=== PATIENT | female | born 1950 | race Caucasian/White ===

== ENCOUNTER 2021-11-29 21:56 | Inpatient (IN) | payer MEDICARE, SELFPAY ==
[~2021-11-29] VITALS: Ht 165.1 cm; Wt 93.0 kg
--- NOTE | 2021-11-29 22:45 | NUR ---
To ER Bed 05.
--- NOTE | 2021-11-29 22:59 | NUR ---
received pt from EMS and placed to bed 05. pt currently a/o x 4, gcs 15. able to move all extremities freely. pt is a 71 year old female with hx of CV+, hypothyroid, asthma biba from home for cc of SOB x 2 days. Per EMS, pt sats 85% on RA. pt currently placed on 4lpm n/c. sts was CV+ 2 weeks ago. accompanying s/sx is myalgia, and loss of taste and smell. pt currently NAD. on CM. CR<3s.
[2021-11-29 23:16] VITALS: BP 109/61
[2021-11-29] MEDS ORDERED: ACETAMINOPHEN EXTRA STRENGTH 500 MG TAB PO ONE (23:55)
[2021-11-30] MEDS ORDERED: cefTRIAXone 1,000 MG VIAL ONE (00:06)
[2021-11-30 00:10] LABS: BASOPHILS # (AUTO) 0.1 K/uL (0.00-0.22); BASOPHILS % (AUTO) 0.8 % (0.0-2.0); EOSINOPHILS % (AUTO) 0.1 % (0.0-4.0); HEMATOCRIT 40.2 % (36-48); HEMOGLOBIN 13.5 g/dL (12.0-16.0); LYMPHOCYTES # (AUTO) 1.5 K/uL (2.5-16.5); MEAN CORPUSCULAR HEMOGLOBIN 29 pg (27-31); MEAN CORPUSCULAR HGB CONC 34 g/dL (33-37); MONOCYTES # (AUTO) 0.9 K/uL (0.8-1.0); MONOCYTES % (AUTO) 9.5 % (1.7-9.3); NEUTROPHILS # (AUTO) 6.9 K/uL (1.8-7.7); NEUTROPHILS % (AUTO) 73.6 % (42.2-75.2); PLATELET COUNT (AUTO) 212 K/uL (140-450); RED BLOOD CELL COUNT(AUTO) 4.68 MIL/uL (4.20-5.40); WHITE BLOOD COUNT (AUTO) 9.3 K/uL (4.8-10.8)
--- NOTE | 2021-11-30 00:11 | NUR ---
CV swab collected and sent to lab.
[2021-11-30 01:01] LABS: ALBUMIN 2.9 g/dL (3.4-5.0); ANION GAP 15.5 (8-16); CARBON DIOXIDE 25.9 mmol/L (21-32); CREATININE 1.1 mg/dL (0.6-1.3); POTASSIUM 4.4 mmol/L (3.5-5.1); TOTAL BILIRUBIN 0.3 mg/dL (0.0-1.0)
--- NOTE | 2021-11-30 01:19 | NUR ---
OPAL WESLEY CALLED REQUESTING UPDATE [phone]
--- NOTE | 2021-11-30 01:37 | NUR ---
NAD at this time. pt currently asleep.
--- NOTE | 2021-11-30 04:48 | NUR ---
afebrile at this time. currently asleep. NAD
--- NOTE | 2021-11-30 05:39 | NUR ---
sw with Buzz, spouse to give an update yosi pt.
--- NOTE | 2021-11-30 06:35 | NUR ---
NAD at this time VSS on 3lpml n/c
--- NOTE | 2021-11-30 07:30 | NUR ---
RECEIVED PT IN [place] AOX4. C/O BODY ACHES AND FATIGUE. PT ON 2L NC SATURATION 97%. SPEAKING IN FULL SENTENCES. DENIES SOB. NAD. SAFETY MAINTAINED.
[2021-11-30] MEDS ORDERED: guaiFENesin DM 200/20 MG-10 ML 10 ML UDC PO PRN (08:25)
[2021-11-30] MEDS ORDERED: ZOLPIDEM 5 MG TAB PO PRN (08:25)
[2021-11-30] MEDS ORDERED: DOCUSATE SODIUM 100 MG GELCAP PO PRN (08:25)
[2021-11-30] MEDS ORDERED: ACETAMINOPHEN 325 MG TAB PO PRN (08:25)
[2021-11-30] MEDS ORDERED: NACL 0.9% 1,000 ML IV SCH (08:25)
[2021-11-30] MEDS ORDERED: POTASSIUM CHLORIDE 10 MEQ TABER PO PRN (08:25)
[2021-11-30] MEDS ORDERED: HYDROcodone/APAP 7.5/325 MG 1 TAB PO PRN (08:25)
[2021-11-30] MEDS ORDERED: ONDANSETRON 4 MG/2 ML VIAL IM/IVP PRN (08:25)
[2021-11-30] MEDS ORDERED: ALBUTEROL HFA MDI 90 MCG/ACTUATION 8 GM INH PRN (08:30)
[2021-11-30] MEDS ORDERED: remdesivir CLINICAL MONITORING 1 EA MISC MC PRN (08:40)
--- NOTE | 2021-11-30 08:45 | NUR ---
DR AYALA AT BEDSIDE FOR EVAL. ORDERS TO DC FLUIDS.
[2021-11-30] MEDS: ZINC SULF 220 MG CAP PO SCH (09:38)
[2021-11-30] MEDS: ASCORBIC ACID 500 MG TAB PO SCH (09:38)
[2021-11-30] MEDS: PANTOPRAZOLE 40 MG TABEC PO SCH (09:38)
[2021-11-30] MEDS: AZITHROMYCIN 250 MG TAB PO SCH (09:39)
[2021-11-30] MEDS: COMMUNICATION ORDER MC SCH (09:53)
--- NOTE | 2021-11-30 10:45 | NUR ---
Received report from NATALYA Leung. Patient resting with meal tray completed. Denies any SOB; remains on lunchroom monitor and 4L by N/C showing SpO2 97%. Bed locked in lowest position, side rails x 2.
--- NOTE | 2021-11-30 11:50 | NUR ---
Lunch mealtray at bedside. Pt sitting upright completing meal.
[2021-11-30] MEDS ORDERED: REMDESIVIR. 200 MG in NACL 0.9% 100 ML IV SCH (12:00)
--- NOTE | 2021-11-30 12:32 | NUR ---
Patient completed 70% of meal; reports she has increased appetite. All pt needs met.
--- NOTE | 2021-11-30 13:47 | NUR ---
PT at bedside
--- NOTE | 2021-11-30 13:48 | NUR ---
ENTOMOLOGY PROFESSOR at bedside
--- NOTE | 2021-11-30 13:48 | NUR ---
Salvador (CLINICAL SUPPORT NURSE) states to continue patient on textured foods.
[2021-11-30 14:08] LABS: PROTHROMBIN TIME 10.2 secs (10.8-13.4)
[2021-11-30 14:13] LABS: CHOL/HDL RATIO 4.6 (1-4.5); FREE T4 (FREE THYROXINE) 1.02 ng/dL (0.76-1.46); MAGNESIUM 2.1 mg/dL (1.8-2.4); PHOSPHORUS 3.3 mg/dL (2.5-4.9); THYROID STIMULATING HORMONE 4.14 uIU/mL (0.34-3.74)
--- NOTE | 2021-11-30 16:14 | NUR ---
Bedside commode provided per request to void.
--- NOTE | 2021-11-30 16:21 | NUR ---
PATIENT HAS BEEN SCREENED AND CATEGORIZED MODERATE NUTRITION RISK. PATIENT WILL BE SEEN WITHIN 3-5 DAYS OF ADMISSION. JULIA [address]
--- NOTE | 2021-11-30 19:30 | NUR ---
Recived patient alert and oriented x 4. Patient's respirations are even and unlabored. Bilateral a/p lower lung sounds diminished. Dry cough noted. Patient currently on RA. Patient skin is warm and dry to touch. Patient appears to be resting comfortably in bed with no complaints at this time. Vital Signs within normal limits on groundskeeping yardman.
--- NOTE | 2021-11-30 23:16 | NUR ---
Patient appears to be resting comfortably in bed. Vital Signs within normal limits. Respirations even and unlabored.
--- NOTE | 2021-12-01 00:49 | NUR ---
Note clare in ED - 12/01/21 at 0115 by [facility] Patient discharged with v/s stable. Written and verbal after care instructions given and explained. Patient verbalized understanding. Ambulatory with steady gait. All questions addressed prior to discharge. Advised to follow up with PMD.
[2021-12-01] MEDS ORDERED: cefTRIAXone 1,000 MG VIAL ONE (01:21)
--- NOTE | 2021-12-01 03:30 | NUR ---
Patient appears to be resting comfortably in bed. Vital Signs within normal limits. Respirations even and unlabored.
[2021-12-01 06:07] LABS: T4 (THYROXINE) 8.7 ug/dL (4.5-12.0)
--- NOTE | 2021-12-01 07:08 | NUR ---
Patient awake and sitting up in bed. Patient alert and oriented x 4. Respirations are even and unlabored. Patient placed on 2L NC, o2 sat @ 88%. Patient given extra pillow for comfort and toothbrush and tooth paste. VSS on layer off.
--- NOTE | 2021-12-01 07:32 | NUR ---
REPORT RECEIVED FROM NATALYA COYNE FOR TRANSFER OF CARE
[2021-12-01] MEDS: PANTOPRAZOLE 40 MG TABEC PO SCH (08:43)
[2021-12-01] MEDS: ZINC SULF 220 MG CAP PO SCH (08:44)
[2021-12-01] MEDS: ASCORBIC ACID 500 MG TAB PO SCH (08:44)
[2021-12-01] MEDS: AZITHROMYCIN 250 MG TAB PO SCH (08:44)
[2021-12-01] MEDS: COMMUNICATION ORDER MC SCH (09:00)
[2021-12-01 11:21] LABS: BASOPHILS % (AUTO) 0.2 % (0.0-2.0); HEMATOCRIT 40.8 % (36-48); HEMOGLOBIN 13.4 g/dL (12.0-16.0); LYMPHOCYTES # (AUTO) 0.7 K/uL (2.5-16.5); LYMPHOCYTES % (AUTO) 6.2 % (20.5-51.1); MEAN CORPUSCULAR HEMOGLOBIN 28 pg (27-31); MEAN CORPUSCULAR HGB CONC 33 g/dL (33-37); MEAN CORPUSCULAR VOLUME 86.6 fL (80-94); MONOCYTES # (AUTO) 0.8 K/uL (0.8-1.0); MONOCYTES % (AUTO) 7.8 % (1.7-9.3); NEUTROPHILS # (AUTO) 9.2 K/uL (1.8-7.7); NEUTROPHILS % (AUTO) 85.8 % (42.2-75.2); PLATELET COUNT (AUTO) 244 K/uL (140-450); RED BLOOD CELL COUNT(AUTO) 4.72 MIL/uL (4.20-5.40); RED CELL DISTRIBUTION WIDTH 14.8 % (11.6-13.7); WHITE BLOOD COUNT (AUTO) 10.7 K/uL (4.8-10.8)
--- NOTE | 2021-12-01 11:29 | NUR ---
PT PROVIDED WITH FRESH LINEN, GOWN AND MOSIT TOWELETTES BEDSIDE
[2021-12-01] MEDS: REMDESIVIR. 100 MG in NACL 0.9% 100 ML IV SCH (12:00)
[2021-12-01 12:06] LABS: ANION GAP 14.4 (8-16); CARBON DIOXIDE 26.5 mmol/L (21-32); CREATININE 0.9 mg/dL (0.6-1.3); POTASSIUM 4.9 mmol/L (3.5-5.1)
--- NOTE | 2021-12-01 15:02 | NUR ---
Patient appears to be resting comfortably in bed. Vital Signs within normal limits. Respirations even and unlabored.
--- NOTE | 2021-12-01 18:17 | NUR ---
Patient appears to be resting comfortably in bed. Vital Signs within normal limits. Respirations even and unlabored. PT CURRENTLY READING BOOK BEDSIDE
--- NOTE | 2021-12-01 19:17 | NUR ---
Pt report given to NATALYA HUYNH. Transfer of care at this time.
--- NOTE | 2021-12-01 20:00 | NUR ---
AWAKE AND ALERT. DENIES COMPLAINTS. DIET TRAY SERVED.
--- NOTE | 2021-12-01 22:00 | NUR ---
RESTING IN BED WITH EYES CLOSED, RESPIRATIONS REGULAR AND UNLABORED
[2021-12-02] MEDS ORDERED: cefTRIAXone 1,000 MG VIAL ONE (00:38)
--- NOTE | 2021-12-02 02:00 | NUR ---
AWAKE. DENIES PAIN OR DISCOMFORT.
--- NOTE | 2021-12-02 05:52 | NUR ---
RESTING IN BED WITH EYES CLOSED. RESPIRATIONS REGULAR AND UNLABORED
--- NOTE | 2021-12-02 07:39 | NUR ---
REPORT RECEIEVED FROM NATALYA HUYNH FOR TRANSFER OF CARE
[2021-12-02] MEDS: ASCORBIC ACID 500 MG TAB PO SCH (08:12)
[2021-12-02] MEDS: PANTOPRAZOLE 40 MG TABEC PO SCH (08:12)
[2021-12-02] MEDS: AZITHROMYCIN 250 MG TAB PO SCH (08:13)
[2021-12-02] MEDS: ZINC SULF 220 MG CAP PO SCH (08:13)
--- NOTE | 2021-12-02 08:14 | NUR ---
Patient appears to be resting comfortably in bed. Vital Signs within normal limits. Respirations even and unlabored.
--- NOTE | 2021-12-02 08:18 | NUR ---
PT PROVIDED WITH EXTRA BLANKET AND BREAKFAST TRAY
[2021-12-02] MEDS: COMMUNICATION ORDER MC SCH (09:00)
[2021-12-02 09:24] LABS: BASOPHILS % (AUTO) 0.1 % (0.0-2.0); HEMATOCRIT 38.7 % (36-48); LYMPHOCYTES # (AUTO) 0.8 K/uL (2.5-16.5); LYMPHOCYTES % (AUTO) 8.5 % (20.5-51.1); MEAN CORPUSCULAR HEMOGLOBIN 29 pg (27-31); MEAN CORPUSCULAR HGB CONC 34 g/dL (33-37); MEAN CORPUSCULAR VOLUME 85.6 fL (80-94); MONOCYTES # (AUTO) 0.6 K/uL (0.8-1.0); MONOCYTES % (AUTO) 6.3 % (1.7-9.3); NEUTROPHILS # (AUTO) 7.9 K/uL (1.8-7.7); NEUTROPHILS % (AUTO) 85.1 % (42.2-75.2); PLATELET COUNT (AUTO) 294 K/uL (140-450); RED BLOOD CELL COUNT(AUTO) 4.52 MIL/uL (4.20-5.40); WHITE BLOOD COUNT (AUTO) 9.2 K/uL (4.8-10.8)
[2021-12-02 09:40] LABS: ALBUMIN 2.5 g/dL (3.4-5.0); ANION GAP 12.8 (8-16); CARBON DIOXIDE 27.6 mmol/L (21-32); POTASSIUM 4.4 mmol/L (3.5-5.1); TOTAL BILIRUBIN 0.2 mg/dL (0.0-1.0)
--- NOTE | 2021-12-02 12:01 | NUR ---
Patient appears to be resting comfortably in bed. Vital Signs within normal limits. Respirations even and unlabored.
[2021-12-02] MEDS: REMDESIVIR. 100 MG in NACL 0.9% 100 ML IV SCH (12:03)
[2021-12-02 12:09] LABS: ALBUMIN 2.6 g/dL (3.4-5.0); BILIRUBIN,DIRECT 0.1 mg/dL (0.0-0.3); TOTAL BILIRUBIN 0.2 mg/dL (0.0-1.0)
--- NOTE | 2021-12-02 12:44 | NUR ---
PT PROVIDED WITH LUNCH TRAY BEDSIDE
--- NOTE | 2021-12-02 18:29 | NUR ---
PT PROVIDED WITH DINNER TRAY BEDSIDE
--- NOTE | 2021-12-02 19:23 | NUR ---
Pt report given to NATALYA SCOTT. Transfer of care at this time.
--- NOTE | 2021-12-02 19:23 | NUR ---
REPORT RECEIVED FROM NATALYA MUÑOZ. CONTINUITY OF PT CARE AT THIS TIME.
--- NOTE | 2021-12-02 19:55 | NUR ---
PT LAYING IN BED AWAKE, SUPINE POSITION W HOB ELEVATED PLAYING GAMES ON TABLET. BED LOCKED IN LOWEST POSITION W X1 SIDERAIL UP. PT DENIES ANY CHEST PAIN, PAIN, SOB, N/D, COUGH, DIZZYNESS OR OTHER SYMPTOMS. PT DOES NOT NEED ANYTHING AT THIS TIME. PT CONNECTED TO MONITOR W VSS. PT ON 2L NC. BREATHING EVEN AND UNLABORED. NAD NOTED, WILL CONTINUE TO MONITOR.
[2021-12-03] MEDS ORDERED: cefTRIAXone 1,000 MG VIAL ONE (00:05)
--- NOTE | 2021-12-03 00:23 | NUR ---
PT LAYING IN BED IN SUPINE POSITION W HOB SLIGHTLY ELEVATED. PT DENIES ANY PAIN, SOB OR OTHER SYMPTOMS. PT VSS. PT PLACED ON 4L NC D/T DSAT TO 88% UPON WALKING TO BATHROOM. O2 SAT AT THIS TIME 92%. BREATHING EVEN AND UNLABORED. NAD NOTED, WILL CONTINUE TO MONITOR.
--- NOTE | 2021-12-03 04:02 | NUR ---
PT LAYING SUPINE IN BED LOCKED IN LOWEST POSITION. HOB SLIGHTLY ELEVATED. PT AWAKE, DENIES ANY PAIN, CHEST PAIN, SOB, DIZZYNESS OR OTHER SYMPTOMS. PT VSS. BREATHING EVEN AND UNLABORED. NAD NOTED, WILL CONTINUE TO MONITOR.
--- NOTE | 2021-12-03 07:23 | NUR ---
Report and continuation of care received from NATALYA Moseley.
--- NOTE | 2021-12-03 07:23 | NUR ---
Pt report given to NATALYA CORREA. Transfer of care at this time.
--- NOTE | 2021-12-03 07:46 | NUR ---
Patient awake with both eyes open; A&Ox4, disconnected from cardiac catheterization technician and ambulated to restroom with steady/even gait.
[2021-12-03] MEDS: COMMUNICATION ORDER MC SCH (09:00)
[2021-12-03 09:46] LABS: BASOPHILS % (AUTO) 0.1 % (0.0-2.0); HEMATOCRIT 40.4 % (36-48); HEMOGLOBIN 13.4 g/dL (12.0-16.0); LYMPHOCYTES # (AUTO) 1.2 K/uL (2.5-16.5); LYMPHOCYTES % (AUTO) 13.3 % (20.5-51.1); MEAN CORPUSCULAR HEMOGLOBIN 29 pg (27-31); MEAN CORPUSCULAR HGB CONC 33 g/dL (33-37); MEAN CORPUSCULAR VOLUME 85.8 fL (80-94); MONOCYTES # (AUTO) 0.9 K/uL (0.8-1.0); MONOCYTES % (AUTO) 9.5 % (1.7-9.3); NEUTROPHILS # (AUTO) 7.2 K/uL (1.8-7.7); NEUTROPHILS % (AUTO) 77.1 % (42.2-75.2); PLATELET COUNT (AUTO) 326 K/uL (140-450); RED BLOOD CELL COUNT(AUTO) 4.71 MIL/uL (4.20-5.40); RED CELL DISTRIBUTION WIDTH 14.7 % (11.6-13.7); WHITE BLOOD COUNT (AUTO) 9.3 K/uL (4.8-10.8)
[2021-12-03 10:15] LABS: ANION GAP 13.5 (8-16); CARBON DIOXIDE 27.7 mmol/L (21-32); POTASSIUM 4.2 mmol/L (3.5-5.1)
[2021-12-03] MEDS: ZINC SULF 220 MG CAP PO SCH (10:25)
[2021-12-03] MEDS: ASCORBIC ACID 500 MG TAB PO SCH (10:25)
[2021-12-03] MEDS: PANTOPRAZOLE 40 MG TABEC PO SCH (10:25)
[2021-12-03] MEDS: AZITHROMYCIN 250 MG TAB PO SCH (10:25)
[2021-12-03 10:43] LABS: ALBUMIN 2.6 g/dL (3.4-5.0); BILIRUBIN,DIRECT 0.1 mg/dL (0.0-0.3); TOTAL BILIRUBIN 0.3 mg/dL (0.0-1.0)
--- NOTE | 2021-12-03 12:05 | NUR ---
Lunch mealtray at bedside. Pt upright completing meal.
[2021-12-03] MEDS: REMDESIVIR. 100 MG in NACL 0.9% 100 ML IV SCH (12:13)
--- NOTE | 2021-12-03 12:35 | NUR ---
Patient resting in position of comfort. quality assurance monitor body in place. 4L by NC in place. SpO2 96%. Bed locked in lowest position, side rails x 1.
--- NOTE | 2021-12-03 12:40 | NUR ---
Patient completed 80% of meal tray. All pt needs met.
--- NOTE | 2021-12-03 15:38 | NUR ---
Patient resting in position of comfort. monitoring engineer in place. 4L by NC in place. SpO2 93%. Bed locked in lowest position, side rails x 1.
--- NOTE | 2021-12-03 15:38 | NUR ---
Called [facility], no answer at this time.
--- NOTE | 2021-12-03 16:31 | NUR ---
RECEIVE REPORT AND PATIENT FROM ER NURSE PATIENT IS AX4 NO COMPLAINS NO SOD NOTED, BREATHING EVEN UNLABORED, SKIN INTACT, PATIENT IS IN NASAL CANULA 4L SAT 98% POC DISCUSSED, CALLS LIGHT WITHIN REACH ALL SAFETY MEASURES ON PLACE
[2021-12-03 17:00] VITALS: BP 116/58
--- NOTE | 2021-12-03 19:51 | NUR ---
FULL REPORT GIVEN TO INDUSTRIAL RELATIONS REPRESENTATIVE NURSE
[2021-12-03 20:00] VITALS: BP 129/56
--- NOTE | 2021-12-03 20:00 | NUR ---
Received patient from AM shift nurse. Patient is AA&O4 able to make needs known. Patient denies chest pain or SOB. Chest rise is even and unlabored. Normal heart sounds present. Active bowel sounds x4 on auscultation, denies pain with palpation no distention is noted. Patient is stable. Patient has call light within reach, bed is locked in the lowest position with bed rails up. Will continue to monitor throughout the shift.
[2021-12-04] VITALS (7 sets, daily range): BP systolic 112–143; BP diastolic 54–62
[2021-12-04 06:30] LABS: BASOPHILS % (AUTO) 0.2 % (0.0-2.0); EOSINOPHILS % (AUTO) 0.1 % (0.0-4.0); HEMATOCRIT 37.8 % (36-48); HEMOGLOBIN 12.7 g/dL (12.0-16.0); LYMPHOCYTES % (AUTO) 11.1 % (20.5-51.1); MEAN CORPUSCULAR HEMOGLOBIN 29 pg (27-31); MEAN CORPUSCULAR HGB CONC 34 g/dL (33-37); MEAN CORPUSCULAR VOLUME 85.6 fL (80-94); MONOCYTES # (AUTO) 0.8 K/uL (0.8-1.0); MONOCYTES % (AUTO) 8.1 % (1.7-9.3); NEUTROPHILS # (AUTO) 7.5 K/uL (1.8-7.7); NEUTROPHILS % (AUTO) 80.5 % (42.2-75.2); PLATELET COUNT (AUTO) 316 K/uL (140-450); RED BLOOD CELL COUNT(AUTO) 4.41 MIL/uL (4.20-5.40); RED CELL DISTRIBUTION WIDTH 14.2 % (11.6-13.7); WHITE BLOOD COUNT (AUTO) 9.3 K/uL (4.8-10.8)
[2021-12-04 06:45] LABS: CARBON DIOXIDE 27.4 mmol/L (21-32); CREATININE 0.7 mg/dL (0.6-1.3); POTASSIUM 4.4 mmol/L (3.5-5.1)
--- NOTE | 2021-12-04 07:00 | NUR ---
Patient is currently sleeping no s/s of distress is noted. Patient is able to verbalize needs and all needs have been met. All schedule shift medications have been administered and all interventions completed and documented. Safety protocols are in place. Will differ further care to AM shift nurse for continuity of care.
[2021-12-04 07:04] LABS: ALBUMIN 2.4 g/dL (3.4-5.0); TOTAL BILIRUBIN 0.2 mg/dL (0.0-1.0)
--- NOTE | 2021-12-04 07:35 | NUR ---
RECEIVE BEDSIDE REPORT FROM SENIOR QA AUTOMATION ENGINEER NURSE FOR CONTINUITY OF CARE. PATIENT IS AX4 ABLE TO VERBALIZE NEEDS, RESPIRATIONS EVEN AND UNLABORED. ON 4L NC O2 SATURATION AT 96%. NO DISTRESS NOTED. SKIN IS WARM, DRY, AND, INTACT. IV SITE INTACT AND PATENT. INFUSING FLUIDS WELL. DENIES PAIN AT THE MOMENT. POC DISCUSSED, SAFETY PRECAUTIONS IN PLACE. CALLS LIGHT WITHIN REACH. WILL CONTINUE TO MONITOR.
[2021-12-04] MEDS: COMMUNICATION ORDER MC SCH (09:00)
[2021-12-04] MEDS ORDERED: APIX2.5 PO (09:22)
[2021-12-04] MEDS ORDERED: DEXA6TAB1 PO (09:22)
[2021-12-04] MEDS ORDERED: VITC500 PO (09:22)
[2021-12-04] MEDS ORDERED: ZINC220C29 PO (09:22)
--- NOTE | 2021-12-04 09:55 | NUR ---
ALL SCHEDULED MEDS GIVEN. PT IS STABLE. NO DISTRESS NOTED. WILL CONTINUE TO MONITOR.
[2021-12-04] MEDS: AZITHROMYCIN 250 MG TAB PO SCH (09:56)
[2021-12-04] MEDS: ZINC SULF 220 MG CAP PO SCH (09:56)
[2021-12-04] MEDS: ASCORBIC ACID 500 MG TAB PO SCH (09:56)
[2021-12-04] MEDS: PANTOPRAZOLE 40 MG TABEC PO SCH (09:56)
--- NOTE | 2021-12-04 10:26 | NUR ---
DISCHARGE PLANNING Order for Home O2 & home health. Faxed to [facility] & karime Hendrickson at [facility]. Faxed to [facility]. Addendum: 12/04/21 at 1110 by Nadya Wilson CM Received msg from [facility], declined due to not contracted with insurance. Faxed to [facility].
[2021-12-04] MEDS: REMDESIVIR. 100 MG in NACL 0.9% 100 ML IV SCH (12:39)
--- NOTE | 2021-12-04 12:57 | NUR ---
12/04/21 RD INITIAL ASSESSMENT COMPLETED PLEASE REFER TO NUTRITION ASSESSMENT UNDER CARE ACTIVITY FOR ESTIMATED NUTRITIONAL NEEDS. 1. CONTINUE CARDIAC DIET TOLERATED 2. RD TO FOLLOW-UP 7 DAYS, LOW RISK (DOWNGRADED D/T PT STABLE AND EATING WELL) JULIA WHITES[address]
--- NOTE | 2021-12-04 13:52 | NUR ---
RECEIVED A CALL FROM [employer]. OXYGEN TANK WILL BE DELIVERED TO O2. PATIENT WILL INFORM ME ONCE HOME O2 IS DELIVERED.
--- NOTE | 2021-12-04 13:52 | NUR ---
CHECKED ON PATIENT. PT IS STABLE. NO DISTRESS NOTED. WILL CONTINUE TO MONITOR.
--- NOTE | 2021-12-04 15:15 | NUR ---
CHECKED ON PATIENT. PT IS STABLE. NO DISTRESS NOTED. WILL CONTINUE TO MONITOR.
--- NOTE | 2021-12-04 19:35 | NUR ---
ENDORSED TO TAKE OFF WORKER NURSE FOR CONTINUITY OF CARE. PT IS STABLE.
--- NOTE | 2021-12-04 20:30 | NUR ---
Patient was received from AM shift nurse at 1930. Patient was pending discharge and patient arrived at 194 to poultry picker patient with O2 tank. Patient was provided discharge education related to COVID infection diagnosis and at home O2 use. Patient verbalize understanding and signed all discharge paper work. All patient belongings were gathered and were taken by the patient. IV was DC'd. Patient was stable and tolerating O2 well prior to discharge. Patient left at 2029.
== END 2021-12-04 20:30 | disposition home health service (06) | DRG 871 ==
LOC: MED 21:56 → MTU 11-30 02:36 → MMU 12-03 15:31
PROVIDERS: ADMIT Family Medicine; ATTEND Family Medicine
PROC: XW033E5 Introduction of Remdesivir Anti-infective into Peripheral Vein, Percutaneous Approach, New Technology Group 5 (ICD-10-PCS; principal; 2021-11-30)
DX: A41.9 Sepsis, unspecified organism (principal); U07.1 COVID-19; J12.82 Pneumonia due to coronavirus disease 2019; J96.01 Acute respiratory failure with hypoxia; E43 Unspecified severe protein-calorie malnutrition; J15.9 Unspecified bacterial pneumonia; J45.901 Unspecified asthma with (acute) exacerbation; E87.0 Hyperosmolality and hypernatremia; D68.59 Other primary thrombophilia; E03.9 Hypothyroidism, unspecified; Z68.34 Body mass index [BMI] 34.0-34.9, adult
CPT/HCPCS: 36415; 71045; 80048; 80053; 80076; 82150; 83036; 83615; 83690; 83735; 83880; 84100; 84436; 84439; 84443; 84479; 84484; 85025; 85379; 85610; 85730; 86140; 87040; 92610; 93005; 96365; 97116; 97163-GP; 97530; 99285; J0696; J1644; J7060; Q0092